=== PATIENT | female | born 1975 | race African-American/Black ===

== ENCOUNTER 2016-10-04 16:03 | Emergency (ER) | payer BC ==
[2016-10-04 16:07] VITALS: BP 125/79
--- NOTE | 2016-10-04 16:21 | ER Document Report ---
ED Medical Screen (RME) - General Stated Complaint: POSSIBLE FLU Mode of Arrival: Ambulatory Information source: Patient Notes: Patient presents to the emergency department with complaints of flulike symptoms for the past 8 days with fever coughing body aches. Reports that cough is worse recently. She reports coughing up blood clots sputum. She had recent surgery of gallbladder removal in July.. Denies trauma. No history of blood clots PEs and DVTs. Patient has been tested for tuberculosis in the past and is negative. Breath sounds equal I have greeted and performed a rapid initial assessment of this patient. A comprehensive ED assessment and evaluation of the patient, analysis of test results and completion of the medical decision making process will be conducted by additional ED providers. TRAVEL OUTSIDE OF THE [place] 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 Past Medical History - Past Medical History Cardiac Medical History: Denies: Hx Coronary Artery Disease, Hx Heart Attack, Hx Hypertension Pulmonary Medical History: Denies: Hx Asthma, Hx Bronchitis, Hx COPD, Hx Pneumonia Neurological Medical History: Denies: Hx Cerebrovascular Accident, Hx Seizures Musculoskeltal Medical History: Denies Hx Arthritis - Immunizations Hx Diphtheria, Pertussis, Tetanus Vaccination: Yes Physical Exam - Vital signs Vitals: Temp Pulse Resp BP Pulse Ox 98.7 F 93 18 125/79 98 10/04/16 16:06 10/04/16 16:06 10/04/16 16:06 10/04/16 16:06 10/04/16 16:06 Course - Vital Signs Vital signs: Temp Pulse Resp BP Pulse Ox 98.7 F 93 18 125/79 98 10/04/16 16:06 10/04/16 16:06 10/04/16 16:06 10/04/16 16:06 10/04/16 16:06
== END 2016-10-04 16:30 | disposition left against medical advice (07) ==
LOC: ER 16:03
DX: R50.9 Fever, unspecified (principal); R05 Cough; M79.1 Myalgia; Z91.018 Allergy to other foods
CPT/HCPCS: 99281